=== PATIENT | male | born 1940 | race Caucasian/White ===

== ENCOUNTER 2018-10-20 18:08 | Emergency (ER) | payer MEDICARE, BC ==
--- NOTE | 2018-10-20 19:06 | ED.PDOC ---
History of Present Illness - General Chief Complaint: Cardiovascular Problem Stated Complaint: defibrillator discharged Time Seen by Provider: 10/20/18 18:28 Source: patient, family - History of Present Illness Initial Comments: patient comes in today for his defibrillator going off 2-3 times prior to arrival. Patient states he was feeling fine and his normal usual health and was sitting in his recliner with his family. He awoke after loss of consciousness and his family stated a history for bladder had gone off. It went off 2 more times in route. Patient has no chest pain or diaphoresis. He denies any nausea or vomiting. Patient is sitting comfortably and states he feels just fine but thinks his defibrillator is just going off unnecessarily. Patient has never really had chest pain in the past this cardiac events but he did have arm pain. This defibrillator was placed 2 years ago but is a second one. He states it's never gone off in the past. He denies any fever or chills. He did have a stressful couple of days with his stepson committing suicide. Patient denies any other acute complaints. Timing/Duration: 1-3 hours Allergies/Adverse Reactions: Allergies NO KNOWN ALLERGY Allergy (Verified 02/13/16 08:52) Home Medications: Ambulatory Orders Budes/Formoterol INH 160/4.5 [Symbicort Inhaler 160/4.5] 2 each INH BID 02/13/16 Carvedilol 3.125 mg PO BID 02/13/16 Dutasteride [Avodart] 0.5 mg PO DAILY 02/13/16 Furosemide 20 mg PO 02/13/16 Insulin Aspart [Novolog Flexpen] unit SC DAILY 02/13/16 Insulin Detemir [Levemir Pen] 55 units SUBCU BEDTIME 02/13/16 Irbesartan [Avapro] 150 mg PO DAILY 02/13/16 Multiple Vitamin [Multi Vitamin Daily] 1 each PO DAILY 02/13/16 Pravastatin Sodium 40 mg PO DAILY 02/13/16 Tamsulosin [Flomax] 0.4 mg PO DAILY 02/13/16 [id number] 40 mg PO DAILY 02/13/16 Xeralto 15 mg PO DAILY 02/13/16 Review of Systems - Review of Systems Constitutional: States: no symptoms reported. Denies: chills, diaphoresis, fever, malaise EENTM: States: no symptoms reported Respiratory: States: no symptoms reported. Denies: cough, orthopnea, short of breath Cardiology: States: see HPI Gastrointestinal/Abdominal: States: no symptoms reported. Denies: abdominal pain, constipation, diarrhea, nausea, vomiting Genitourinary: States: no symptoms reported Musculoskeletal: States: no symptoms reported Past Medical History (General) - Patient Medical History Hx of COPD: Yes Hx Cardiac Disorders: Yes - bypass Hx Hypertension: Yes Hx Diabetes: Yes Hx Gastroesophageal Reflux: - diverticulitis - Vaccination History Hx Tetanus, Diphtheria Vaccination: Yes Hx Influenza Vaccination: No Hx Pneumococcal Vaccination: Yes - Social History Hx Tobacco Use: Yes Hx Alcohol Use: Yes Hx Substance Use: No Hx Substance Use Treatment: No Hx Depression: No - Female History Patient : No Family Medical History - Family History Mother Family History: Unknown Physical Exam - Physical Exam General Appearance: Alert, Comfortable, No apparent distress Eyes, Ears, Nose, Throat Exam: PERRL/EOMI, normal ENT inspection, TMs normal, pharynx normal Neck: non-tender, full range of motion, supple, normal inspection Respiratory: chest non-tender, lungs clear, normal breath sounds, no respiratory distress Cardiovascular/Chest: normal peripheral pulses, regular rate, rhythm, no edema, no gallop, no JVD, no murmur Peripheral Pulses: radial,right: 2+, radial,left: 2+ Gastrointestinal/Abdominal: normal bowel sounds, non tender, soft Progress - Progress Progress: during work up patient patient just had 3 episodes of ventricular fibrillation with diaphoresis but no other symptoms. Defibrillator did work and patient is back in rhythm. Cardiology consulted, Dr. Barrera and patient had two more episodes. Amiodarone and Mag given now 10/20/18 19:11 10/20/18 19:18 - Results/Orders Results/Orders: 10/20/18 18:28 Chest,1 View [RAD] Stat 10/20/18 18:30 EKG STAT Laboratory Results WBC 7.6 K/mm3 (4.8-10.8) 10/20/18 18:34 RBC 3.39 M/mm3 (4.70-6.10) L 10/20/18 18:34 Hgb 12.5 gm/dL (14.0-18.0) L 10/20/18 18:34 Hct 36.1 % (42.0-52.0) L 10/20/18 18:34 MCV 106.6 fl (80.0-94.0) H 10/20/18 18:34 MCH 36.8 pg (27.0-31.0) H 10/20/18 18:34 MCHC 34.5 g/dL (33.0-37.0) 10/20/18 18:34 RDW 17.0 % (11.5-14.5) H 10/20/18 18:34 Plt Count 224 K/mm3 (130-400) 10/20/18 18:34 MPV 7.4 fl (7.40-10.4) 10/20/18 18:34 Absolute Neuts (auto) 5.80 K/uL (1.8-6.8) 10/20/18 18:34 Absolute Lymphs (auto) 0.80 K/uL (1.0-3.4) L 10/20/18 18:34 Absolute Monos (auto) 0.80 K/uL (0.2-0.8) 10/20/18 18:34 Absolute Eos (auto) 0.10 K/uL (0.0-0.4) 10/20/18 18:34 Absolute Basos (auto) 0.10 K/uL (0.0-0.1) 10/20/18 18:34 Neutrophils % 76.6 % (42.0-78.0) 10/20/18 18:34 Lymphocytes % 10.5 % (20.0-50.0) L 10/20/18 18:34 Monocytes % 11.1 % (2.0-9.0) H 10/20/18 18:34 Eosinophils % 0.9 % (1.0-5.0) L 10/20/18 18:34 Basophils % 0.9 % (0.0-2.0) 10/20/18 18:34 Normal RBC Morphology 2+macrocytosis 10/20/18 18:34 Sodium 138 mmol/L (135-145) 10/20/18 18:34 Potassium 3.5 mmol/L (3.6-5.0) L 10/20/18 18:34 Chloride 98 mmol/L (101-111) L 10/20/18 18:34 Carbon Dioxide 27 mmol/L (21-31) 10/20/18 18:34 Anion Gap 16.5 (12-18) 10/20/18 18:34 BUN 20 mg/dL (7-18) H 10/20/18 18:34 Creatinine 1.65 mg/dL (0.6-1.3) H 10/20/18 18:34 BUN/Creatinine Ratio 12.1 (10-20) 10/20/18 18:34 Random Glucose 136 mg/dL (70-105) H 10/20/18 18:34 Serum Osmolality 280.4 mOsm/L (275-295) 10/20/18 18:34 Calcium 9.2 mg/dL (8.4-10.2) 10/20/18 18:34 Total Bilirubin 0.9 mg/dL (0.2-1.0) 10/20/18 18:34 AST 40 IU/L (10-42) 10/20/18 18:34 ALT 17 IU/L (10-60) 10/20/18 18:34 Alkaline Phosphatase 115 IU/L (42-121) 10/20/18 18:34 Creatine Kinase 29 IU/L (38-174) L 10/20/18 18:34 CK-MB (CK-2) 2.0 ng/mL (0.0-4.4) 10/20/18 18:34 CK-MB (CK-2) % Not Reportable 10/20/18 18:34 Troponin I 0.03 ng/mL (0.01-0.05) 10/20/18 18:34 Serum Total Protein 7.2 gm/dL (6.4-8.2) 10/20/18 18:34 Albumin 3.3 g/dl (3.2-5.5) 10/20/18 18:34 Globulin 3.9 gm/dL (2.3-3.5) H 10/20/18 18:34 Albumin/Globulin Ratio 0.8 (1.1-1.9) L 10/20/18 18:34 - EKG/XRAY/CT EKG: no ST T wave changes Comments: paced rhythm at 71 Departure - Departure Clinical Impression: Ventricular fibrillation seen on monitor worker Disposition: Transfer to Hospital Condition: Serious Departure Forms: ED Discharge - Pt. Copy, Patient Portal Self Enrollment Home Medications: Ambulatory Orders Budes/Formoterol INH 160/4.5 [Symbicort Inhaler 160/4.5] 2 each INH BID 02/13/16 Carvedilol 3.125 mg PO BID 02/13/16 Dutasteride [Avodart] 0.5 mg PO DAILY 02/13/16 Furosemide 20 mg PO 02/13/16 Insulin Aspart [Novolog Flexpen] unit SC DAILY 02/13/16 Insulin Detemir [Levemir Pen] 55 units SUBCU BEDTIME 02/13/16 Irbesartan [Avapro] 150 mg PO DAILY 02/13/16 Multiple Vitamin [Multi Vitamin Daily] 1 each PO DAILY 02/13/16 Pravastatin Sodium 40 mg PO DAILY 02/13/16 Tamsulosin [Flomax] 0.4 mg PO DAILY 02/13/16 [id number] 40 mg PO DAILY 02/13/16 Xeralto 15 mg PO DAILY 02/13/16 Transfer to Outside Facility - Transfer Information Accepting Provider:: Dr. Walters cardiology Accepting Facility: [facility] Reason for Transfer: specialized care not available
[2018-10-20] MEDS ORDERED: AMIODARONE IV (LOAD) 150 MG in DEXTROSE 5% 100ML 100 ML IVPB ONE ×2 (19:14→19:23)
[2018-10-20] MEDS ORDERED: MAGNESIUM SULFATE PREMIX 2GM 2 GM in PREMIX BAG 1 BAG IVPB ONE (19:15)
[2018-10-20] MEDS ORDERED: AMIODARONE HCL 150 MG/3 ML VIAL IVPB ONE ×2 (19:16→19:22)
--- NOTE | 2018-10-20 19:16 | RAD ---
EXAM DESCRIPTION: Chest,1 View CLINICAL HISTORY: 78 years Male defibrillator went off COMPARISON: None TECHNIQUE: AP view of the chest was obtained. FINDINGS: Cardiac silhouette is enlarged. Central vessels are moderately increased. Pacemaker leads identified. Sternal wires noted. Electrodes lateral left hemithorax. Small to moderate right pleural effusion. Small left pleural effusion. Airspace opacity right lung base. No abnormal airspace opacity on left. No pneumothorax. Metallic plate and screw device lower cervical spine. IMPRESSION: Enlarged heart with moderate to marked congestive heart failure. Atelectatic change versus infiltrate or pulmonary congestion right lung base. Electronically signed by: Jessica Blackburn MD 10/20/2018 7:14 PM CDT
[2018-10-20] MEDS ORDERED: DEXTROSE 5% 100ML 100 ML IVPB ONE (19:22)
[2018-10-20] MEDS ORDERED: MAGNESIUM SULFATE PREMIX 2GM 50 ML IVPB ONE (19:26)
[2018-10-20] MEDS ORDERED: AMIODARONE IV (MAINT) 900 MG in DEXTROSE 5% (AVIVA) 500ML 500 ML IVPB SCH (19:40)
[2018-10-20 20:28] VITALS: BP 145/73; TEMP 99.9; O2SAT 97
== END 2018-10-20 20:26 | disposition short-term general hospital (02) ==
LOC: ER 18:08
DX: I49.01 Ventricular fibrillation (principal); J44.9 Chronic obstructive pulmonary disease, unspecified; I51.9 Heart disease, unspecified; I10 Essential (primary) hypertension; K21.9 Gastro-esophageal reflux disease without esophagitis; E11.9 Type 2 diabetes mellitus without complications; Z95.1 Presence of aortocoronary bypass graft; Z95.0 Presence of cardiac pacemaker; Z79.01 Long term (current) use of anticoagulants; Z87.891 Personal history of nicotine dependence; Z79.899 Other long term (current) drug therapy; Z79.4 Long term (current) use of insulin
CPT/HCPCS: 36415; 71045; 80053; 82550; 82553; 83735; 84484; 85025; 93005; J0282; J3475; J7060